=== PATIENT | male | born 1935 | race Caucasian/White ===

== ENCOUNTER 2016-11-11 08:52 | Day surgery (SDC) | payer MEDICARE, OTHER ==
[~2016-11-11 08:52] MED LIST: DIPHENHYDRAMINE HCL 50 MG/ML VIAL ONE; EPINEPHRINE INJ 1 MG/10 ML DISP.SYRIN ONE; FENTANYL CITRATE INJ/PF 100 MCG/2 ML AMPUL ONE; FLUMAZENIL INJ 0.5 MG/5 ML VIAL IV ONE; GLUCAGON,HUMAN RECOMB 1 MG INJ ONE; NALOXONE HCL INJ/PF 0.4 MG/1 ML SDV ONE; ONDANSETRON HCL INJ/PF 4 MG/2 ML SDV ONE
[2016-11-11] MEDS: MIDAZOLAM 2 MG/2 ML INJ ONE ×2 (10:41→10:57)
--- NOTE | 2016-11-11 10:53 | Operative Report ---
Operative Report DATE OF SURGERY: 11/11/16 Operative Report: The risks benefits and alternatives of the procedure explained to the patient in detail and informed consent is obtained.A GIF Olympus video scope was inserted into the patient's mouth and hypopharynx, the esophagus is identified intubated and insufflated, the scope was then advanced through the esophagus stomach and duodenum, retroflexion maneuver is done, the esophagus stomach and first and second portions of the duodenum examined PREOPERATIVE DIAGNOSIS: Dysphasia. History of previous Soumya-en-Y surgery for possible peptic ulcer disease POSTOPERATIVE DIAGNOSIS: Esophageal stricture status post bougie dilation. Hiatal hernia. Gastric outlet stricture status post dilatation with balloon 10 mm device. Gastric mass adjacent to gastric outlet, status post biopsy OPERATION: EGD with dilation. EGD with biopsy SURGEON: LORRAINE RICHARDS ANESTHESIA: Moderate Sedation - 3 mg of Versed, 25 mcg of fentanyl. Conscious sedation monitoring time 30 minutes. TISSUE REMOVED OR ALTERED: As described above. COMPLICATIONS: None. ESTIMATED BLOOD LOSS: None. INTRAOPERATIVE FINDINGS: As described above. PROCEDURE: Patient tolerated procedure well. No immediate postprocedure complications are noted. Patient discharged in good condition. Discharge date 11/11/2016. Discharge diet as tolerated. Discharge activity regular. We will need barium swallow with upper GI series. 2-3 week follow-up to discuss findings. We will wait on pathology. Patient is instructed to call the office or proceed to the emergency room should there be any further problems or questions.
[2016-11-11 11:59] VITALS: BP 148/62
== END 2016-11-11 12:00 | disposition home or self-care (01) ==
LOC: END 08:52
PROVIDERS: ATTEND Internal Medicine Gastroenterology
PROC: 0DB68ZX Excision of Stomach, Via Natural or Artificial Opening Endoscopic, Diagnostic (ICD-10-PCS; principal; 2016-11-11 10:00)
PROC: 0D558ZZ Destruction of Esophagus, Via Natural or Artificial Opening Endoscopic (ICD-10-PCS; 2016-11-11 10:00)
DX: K29.50 Unspecified chronic gastritis without bleeding (principal); K22.2 Esophageal obstruction; K44.9 Diaphragmatic hernia without obstruction or gangrene; Z79.82 Long term (current) use of aspirin
CPT/HCPCS: 43239; 43249; 88342 ×2; 88305 ×2; J2250; J3010; J0171; J1200; J1610; J2310; J2405; J3490

== ENCOUNTER 2016-12-21 07:15 | Day surgery (SDC) | payer MEDICARE, OTHER ==
[2016-12-21] MEDS ORDERED: ONDANSETRON HCL INJ/PF 4 MG/2 ML SDV ONE (07:38)
[2016-12-21] MEDS ORDERED: NALOXONE HCL INJ/PF 0.4 MG/1 ML SDV ONE (07:38)
[2016-12-21] MEDS ORDERED: DIPHENHYDRAMINE HCL 50 MG/ML VIAL ONE (07:38)
[2016-12-21] MEDS ORDERED: FENTANYL CITRATE INJ/PF 100 MCG/2 ML AMPUL ONE (07:39)
[2016-12-21] MEDS ORDERED: MIDAZOLAM 2 MG/2 ML INJ ONE (07:39)
[2016-12-21] MEDS ORDERED: GLUCAGON,HUMAN RECOMB 1 MG INJ ONE (07:40)
[2016-12-21] MEDS ORDERED: FLUMAZENIL INJ 0.5 MG/5 ML VIAL ONE (07:40)
[2016-12-21] MEDS ORDERED: EPINEPHRINE INJ 1 MG/10 ML DISP.SYRIN ONE (07:40)
[2016-12-21] MEDS: MIDAZOLAM 2 MG/2 ML INJ ONE ×2 (08:12→08:15)
--- NOTE | 2016-12-21 08:35 | Operative Report ---
Operative Report DATE OF SURGERY: 12/21/16 Operative Report: The risks benefits and alternatives of the procedure explained to the patient in detail and informed consent is obtained.A GIF Olympus video scope was inserted into the patient's mouth and hypopharynx the esophagus is identified intubated and insufflated, the scope was then advanced through the esophagus, stomach remnant and duodenum, retroflexion maneuver is done the esophagus stomach and and the anastamosis examined PREOPERATIVE DIAGNOSIS: Esophageal stricture, dysphagia. Pyloric stenosis POSTOPERATIVE DIAGNOSIS: Esophageal stricture that was dilated with a 10 mm device. Gastritis. Pyloric stenosis status post balloon dilatation, 12, 13.5, 15 mm balloon for 1 minute each. Biopsies obtained in the antrum to rule out H pylori. Biopsies obtained at the anastomosis to rule out recurrent malignancy OPERATION: EGD with dilation, bougie. EGD with balloon dilation. EGD with biopsy SURGEON: LORRAINE RICHARDS ANESTHESIA: Moderate Sedation - 4 mg of Versed, 25 mcg of fentanyl. Conscious sedation monitoring time 30 minutes. TISSUE REMOVED OR ALTERED: As noted above. COMPLICATIONS: None. ESTIMATED BLOOD LOSS: None. INTRAOPERATIVE FINDINGS: As described above. PROCEDURE: Patient tolerated the procedure well. No immediate postprocedure complications are noted. Patient discharged in good condition. Discharge date 12/21/2016. Discharge diet: Regular. Discharge activity: Regular. We will wait on biopsies Repeat dilatation needed in 4-6 weeks Patient is instructed to go to the emergency room I will call the office should there be any further problems or questions.
[2016-12-21 09:29] VITALS: BP 146/63
== END 2016-12-21 09:30 | disposition home or self-care (01) ==
LOC: END 07:15
PROVIDERS: ATTEND Internal Medicine Gastroenterology
PROC: 0DB68ZX Excision of Stomach, Via Natural or Artificial Opening Endoscopic, Diagnostic (ICD-10-PCS; principal; 2016-12-21 08:00)
PROC: 0DH63UZ Insertion of Feeding Device into Stomach, Percutaneous Approach (ICD-10-PCS; 2016-12-21 08:00)
DX: D13.1 Benign neoplasm of stomach (principal); K29.50 Unspecified chronic gastritis without bleeding; K31.1 Adult hypertrophic pyloric stenosis; Z87.891 Personal history of nicotine dependence; Z79.82 Long term (current) use of aspirin
CPT/HCPCS: 43239; 43249; 88342 ×2; 88305 ×2; C1726; J2250; J3010; J1610; J0171; J1200; J2310; J2405; J3490

== ENCOUNTER → 2017-04-07 | Outpatient (CLI) | payer MEDICARE, OTHER ==
--- NOTE | 2017-04-07 15:45 | RADIOLOGY REPORT (SQ) ---
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 TECHNIQUE: CT scan of the abdomen and pelvis performed using helical scanning technique with dynamic intravenous contrast injection. Patient drank oral contrast. Images reviewed with lung, soft tissue , and bone windows. Reconstructed coronal and sagittal MPR images reviewed. Delayed images for evalua tion of the urinary system also acquired. All images stored on PACS. All CT scanners at this facility use dose modulation, iterative reconstruction, and/or weight based d osing when appropriate to reduce radiation dose to as low as reasonably achievable (ALARA). [facility]: Dose Right [facility]: CareDose [facility]: Dose Right [facility]: Teradose 4D [facility]: Linear Dynamics Energy CONTRAST TYPE AND DOSE: contrast/concentration: Isovue 370.00 mg/ml; Total Contrast Delivered: 62.0 ml; Total Saline Delivered: 58.0 ml RENAL FUNCTION: Creatinine 1.4 RADIATION DOSE: CT Rad equipment meets quality standard of care and radiation dose reduction techniq ues were employed. CTDIvol: 2.7 - 3.2 mGy. DLP: 277 mGy-cm.. LIMITATIONS: None. FINDINGS: Patient recently had surgery for malignant neoplasm of stomach, with a subtotal gastrectom y and lysis of adhesions, lymphadenectomy and omentectomy. On today's study, there is a small amount of right lateral chest wall and abdominal wall air superfic ial to the ribs and abdominal wall musculature, postoperative in nature. There is a moderate amount of right subphrenic free fluid, right pericolic gutter free fluid, and pel jamie cul-de-sac fluid. There is questionable peripheral rim enhancement along the pelvic cul-de-sac f luid. No free intraperitoneal air or air bubbles within these subphrenic or pericolic or pelvic fluid colle ctions. Patent drank oral contrast. Oral contrast passes from the stomach into nondistended small bowel loop s. There is oral contrast throughout the small bowel, ascending colon and proximal transverse colon. Findings were called to Dr. Bennie Mckeon from [place], 1515 hours 04/07/2017. LOWER CHEST: No significant findings. No nodules or infiltrates. LIVER: Normal size. No masses. No dilated ducts. SPLEEN: Normal size. No focal lesions. PANCREAS: No masses. No significant calcifications. No adjacent inflammation or peripancreatic fluid collections. Pancreatic duct not dilated. GALLBLADDER: No identified stones by CT criteria. No inflammatory changes to suggest cholecystitis. ADRENAL GLANDS: No significant masses or asymmetry. RIGHT KIDNEY AND URETER: No solid masses. 1 cm cyst right mid-pole kidney. No significant calcifica tions. No hydronephrosis or hydroureter. LEFT KIDNEY AND URETER: No solid masses. 1 cm cyst left mid pole kidney. No significant calcificati ons. No hydronephrosis or hydroureter. AORTA AND VESSELS: No aneurysm. No dissection. Renal arteries, SMA, celiac without stenosis. RETROPERITONEUM: No retroperitoneal adenopathy, hemorrhage or masses. BOWEL AND PERITONEAL CAVITY: As above APPENDIX: Not identified PELVIS: Free pelvic cul-de-sac fluid as above. No adenopathy. Few sigmoid colon diverticuli. Bladd er, prostate unremarkable ABDOMINAL WALL: Small amount of probable postoperative air in the right lateral abdominal wall and lo wer chest subcutaneous fat BONES: No significant or acute findings. OTHER: No other significant finding. IMPRESSION: Free fluid in the abdomen along the right subphrenic region, pericolic gutter and pelvis . Oral contrast throughout the stomach and small bowel, ascending colon and proximal transverse colon w ithout evidence of bowel obstruction or extravasation/ leakage of oral contrast into the peritoneum. TECHNICAL DOCUMENTATION: JOB ID: [id number] Quality ID # [id number]: Final reports with documentation of one or more dose reduction techniques (e.g., Au tomated exposure control, adjustment of the mA and/or kV according to patient size, use of iterative reconstruction technique) 2010 [employer]- All Rights Reserved
== END ==
LOC: RAD 13:16
PROVIDERS: ATTEND Surgery
DX: R10.9 Unspecified abdominal pain (principal); C16.9 Malignant neoplasm of stomach, unspecified; K31.1 Adult hypertrophic pyloric stenosis
CPT/HCPCS: 74177; 82565

== ENCOUNTER 2018-02-27 11:06 | Day surgery (SDC) | payer MEDICARE, OTHER ==
[2018-02-27] MEDS ORDERED: ONDANSETRON HCL INJ/PF 4 MG/2 ML SDV ONE (11:23)
[2018-02-27] MEDS ORDERED: FENTANYL CITRATE INJ/PF 100 MCG/2 ML AMPUL ONE (11:23)
[2018-02-27] MEDS ORDERED: MIDAZOLAM 2 MG/2 ML INJ ONE (11:23)
[2018-02-27] MEDS ORDERED: GLUCAGON,HUMAN RECOMB 1 MG INJ ONE (11:24)
[2018-02-27] MEDS ORDERED: EPINEPHRINE INJ 1 MG/10 ML DISP.SYRIN ONE (11:24)
[2018-02-27] MEDS ORDERED: NALOXONE HCL INJ/PF 0.4 MG/1 ML SDV ONE (11:24)
[2018-02-27] MEDS ORDERED: FLUMAZENIL INJ 0.5 MG/5 ML VIAL ONE (11:24)
--- NOTE | 2018-02-27 12:32 | Operative Report ---
Operative Report DATE OF SURGERY: 02/27/18 Operative Report: The risks benefits and alternatives of the procedure explained to the patient in detail and informed consent is obtained.A GIF Olympus video scope was inserted into the patient's mouth and hypopharynx, the esophagus is identified intubated and insufflated, the scope was then advanced through the esophagus stomach and duodenum, retroflexion maneuver is done, the esophagus stomach and first and second portions of the duodenum examined PREOPERATIVE DIAGNOSIS: Follow-up dysphagia POSTOPERATIVE DIAGNOSIS: Mid esophageal lesion, fleshy in nature status post biopsy. Schatzki's ring status post biopsy to break. Hiatal hernia. Previous surgical noted OPERATION: EGD with biopsy SURGEON: LORRAINE RICHARDS ANESTHESIA: Moderate Sedation - 2 mg of Versed, 12.5 mcg of fentanyl .conscious sedation monitoring time 30 minutes. TISSUE REMOVED OR ALTERED: As noted above. COMPLICATIONS: None. ESTIMATED BLOOD LOSS: None. INTRAOPERATIVE FINDINGS: As noted above. PROCEDURE: Patient tolerated the procedure well. No immediate postprocedure complications are noted. Patient discharged in good condition. Discharge date 02/27/2018. Discharge diet: Regular. Discharge activity: Regular. 2-3-week follow-up to discuss findings. Patient is instructed to call the office or proceed to the emergency room should there be any further proximal questions. Wait on the pathology.
[2018-02-27 13:36] VITALS: BP 163/70
== END 2018-02-27 13:35 | disposition home or self-care (01) ==
LOC: END 11:06
PROVIDERS: ATTEND Internal Medicine Gastroenterology
DX: K22.2 Esophageal obstruction (principal); K44.9 Diaphragmatic hernia without obstruction or gangrene; K20.9 Esophagitis, unspecified; Z87.891 Personal history of nicotine dependence; Z79.82 Long term (current) use of aspirin
CPT/HCPCS: 43239; 88305 ×2; 88312 ×2; J2250; J3010; J0171; J1610; J2310; J2405; J3490

== ENCOUNTER 2019-04-09 11:18 | Day surgery (SDC) | payer MEDICARE, OTHER ==
[~2019-04-09 11:18] MED LIST changes: -FLUMAZENIL INJ 0.5 MG/5 ML VIAL IV ONE; +FLUMAZENIL INJ 0.5 MG/5 ML VIAL ONE; +MIDAZOLAM 2 MG/2 ML INJ ONE
--- NOTE | 2019-04-09 12:12 | Operative Report ---
Operative Report DATE OF SURGERY: 04/09/19 Operative Report: The risks benefits and alternatives of the procedure explained to the patient in detail and informed consent is obtained.A GIF Olympus video scope was inserted into the patient's mouth and hypopharynx, the esophagus is identified intubated and insufflated ,the scope was then advanced through the esophagus stomach and duodenum ,retroflexion maneuver is done, the esophagus stomach and first and second portions of the duodenum examined PREOPERATIVE DIAGNOSIS: Follow-up esophageal lesion. Follow-up lesion noted at anastomotic site POSTOPERATIVE DIAGNOSIS: Mild anastomotic stricture that was dilated with passage of the scope. Biopsies to rule out recurrence. More prominent Schatzki's ring. Biopsies taken at the distal esophagus. Hiatal hernia OPERATION: EGD with biopsy SURGEON: LORRAINE RICHARDS ANESTHESIA: Moderate Sedation - 2 mg of Versed. Conscious sedation monitoring time 30 minutes. TISSUE REMOVED OR ALTERED: As noted above. COMPLICATIONS: None. ESTIMATED BLOOD LOSS: None. INTRAOPERATIVE FINDINGS: As noted above. PROCEDURE: Patient tolerated the procedure well. No immediate postprocedure complications are noted. Patient is discharged in good condition. Discharge date 04/09/2019. Discharge diet: Regular. Discharge activity: Regular. 2 to 3-week follow-up to discuss findings. Patient is instructed to call the office or proceed to the emergency room should there be any further problems or questions. Wait on the pathology.
[2019-04-09 13:13] VITALS: BP 160/66
== END 2019-04-09 13:20 | disposition home or self-care (01) ==
LOC: END 11:18
PROVIDERS: ATTEND Internal Medicine Gastroenterology
DX: K22.9 Disease of esophagus, unspecified (principal); K44.9 Diaphragmatic hernia without obstruction or gangrene; K29.50 Unspecified chronic gastritis without bleeding; K20.9 Esophagitis, unspecified; K22.2 Esophageal obstruction; Z87.891 Personal history of nicotine dependence; K91.89 Other postprocedural complications and disorders of digestive system
CPT/HCPCS: 43239; 88305 ×2; J2250; J3010; J0171; J1200; J1610; J2310; J2405; J3490

== ENCOUNTER 2019-12-18 07:31 | Inpatient (IN) | payer MEDICARE, OTHER ==
[2019-12-18] MEDS ORDERED: PROPOFOL INJ 200 MG/20 ML VIAL IV ONE (07:36)
--- NOTE | 2019-12-18 10:01 | Operative Report ---
Operative Report DATE OF SURGERY: 12/18/19 Operative Report: The risks benefits and alternatives of the procedure explained to the patient in detail and informed consent is obtained.A GIF Olympus video scope was inserted into the patient's mouth and hypopharynx, the esophagus is identified intubated and insufflated, the scope was then advanced through the esophagus stomach and duodenum, retroflexion maneuver is done the esophagus stomach and first and second portions of the duodenum examined PREOPERATIVE DIAGNOSIS: Dyspepsia, gastroesophageal reflux disease personal history of malignancy rule out recurrence. Dysphagia POSTOPERATIVE DIAGNOSIS: Possible mild stricturing at the distal esophageal junction status post biopsy for breakage, as well as the rule out for recurrent malignancy. Inflammation noted in the gastric pouch status post biopsy. Small intestinal loop is normal OPERATION: EGD with biopsy SURGEON: LORRAINE RICHARDS ANESTHESIA: LMAC TISSUE REMOVED OR ALTERED: As noted above. COMPLICATIONS: None. ESTIMATED BLOOD LOSS: None. INTRAOPERATIVE FINDINGS: As noted above. PROCEDURE: Patient tolerated the procedure well. No immediate postprocedure complications are noted. Patient is discharged in good condition. Discharge date 12/18/2019. Discharge diet: Regular. Discharge activity: Regular. 2 to 3-week follow-up to discuss findings. Patient is instructed to call the office or proceed to the emergency room should there be any further problems or questions. Wait on the pathology.
[2019-12-18] MEDS ORDERED: ONDANSETRON HCL INJ/PF 4 MG/2 ML SDV ONE (11:17)
[2019-12-18] MEDS ORDERED: FAMOTIDINE 20 MG TABLET ONE (11:19)
[2019-12-18] MEDS ORDERED: FAMOTIDINE INJ/PF 20 MG/2 ML SDV IV ONE ×2 (11:49→12:30)
--- NOTE | 2019-12-18 12:53 | RADIOLOGY REPORT (SQ) ---
EXAM DESCRIPTION: CHEST SINGLE VIEW IMAGES COMPLETED DATE/TIME: 12/18/2019 12:44 pm REASON FOR STUDY: POSSIBLE ASPIRATION COMPARISON: None. EXAM PARAMETERS: NUMBER OF VIEWS: One view. TECHNIQUE: Single frontal radiographic view of the chest acquired. RADIATION DOSE: NA LIMITATIONS: None. FINDINGS: LUNGS AND PLEURA: Bibasilar infiltrates left greater than right. Findings are consistent with pneumonia. No pneumothorax. No effusion. MEDIASTINUM AND HILAR STRUCTURES: No masses. Contour normal. HEART AND VASCULAR STRUCTURES: Heart normal in size. Normal vasculature. BONES: No acute findings. HARDWARE: None in the chest. OTHER: No other significant finding. IMPRESSION: Bibasilar infiltrates left greater than right. TECHNICAL DOCUMENTATION: JOB ID: [id number] 2010 [employer]- All Rights Reserved Reading location - IP/workstation name: [email or web address]
[2019-12-18] MEDS ORDERED: IPRATROPIUM BROMIDE 0.02% NEB 0.5 MG/2.5 ML AMPUL NEB PRN (13:27)
[2019-12-18] MEDS ORDERED: ACETAMINOPHEN 325 MG TABLET PO PRN (13:27)
[2019-12-18] MEDS ORDERED: ACETAMINOPHEN 650 MG SUPP.RECT PR PRN (13:27)
[2019-12-18] MEDS ORDERED: GLUCAGON,HUMAN RECOMB 1 MG INJ SUBCUT PRN (13:27)
[2019-12-18] MEDS ORDERED: DEXTROSE 50%-WATER 25 GM/50 ML DISP.SYRIN IV PRN ×2 (13:27)
[2019-12-18] MEDS ORDERED: LEVALBUTEROL HCL NEB 1.25 MG/3 ML AMPUL NEB PRN (13:27)
[2019-12-18] MEDS ORDERED: DEXTROSE 40% GEL 15 GM TUBE PO PRN ×2 (13:27)
[2019-12-18 13:29] LABS: HEMATOCRIT 46.2 % (37.9-51.0); HEMOGLOBIN 15.7 g/dL (13.5-17.0); MEAN CORPUSCULAR HGB CONC 33.9 g/dL (32.0-36.0); MEAN CORPUSCULAR VOLUME 103 fl (80-97); PLATELET COUNT 288 10^3/uL (150-450); RED BLOOD COUNT 4.48 10^6/uL (4.35-5.55); RED CELL DISTRIBUTION WIDTH 13.4 % (11.5-14.0); WHITE BLOOD COUNT 1.7 10^3/uL (4.0-10.5)
[2019-12-18 13:32] LABS: ARTERIAL BLOOD BASE EXCESS -7.3 mmol/L; ARTERIAL BLOOD FIO2 100%; ARTERIAL BLOOD H2CO3 1.19 mmol/L (1.05-1.35); ARTERIAL BLOOD HCO3 18.7 mmol/L (20-24); ARTERIAL BLOOD O2 SATURATION 83.4 % (94-98); ARTERIAL BLOOD PCO2 39.5 mmHg (35-45); ARTERIAL BLOOD PH 7.29 (7.35-7.45); ARTERIAL BLOOD PO2 52.3 mmHg (80-100); ARTERIAL BLOOD TOTAL CO2 19.9 mmol/L (23-27)
[2019-12-18 13:37] LABS: INTERNATIONAL RATION (INR) 0.89; PARTIAL THROMBOPLASTIN TIME 24.9 SEC (23.5-35.8); PROTHROMBIN TIME 12.3 SEC (11.4-15.4)
[2019-12-18] MEDS ORDERED: METOPROLOL TARTRATE PF/INJ 5 MG/5 ML SDV IV PRN (13:45)
[2019-12-18] MEDS ORDERED: ENALAPRILAT DIHYDRATE INJ/PF 1.25 MG/1 ML SDV IV PRN (13:45)
[2019-12-18 13:49] LABS: ALBUMIN 4.3 g/dL (3.5-5.0); ALKALINE PHOSPHATASE 126 U/L (38-126); ANION GAP 11 (5-19); ASPARTATE AMINO TRANSFERASE 40 U/L (17-59); BILIRUBIN,DIRECT 0.2 mg/dL (0.0-0.4); BILIRUBIN,TOTAL 0.8 mg/dL (0.2-1.3); BLOOD UREA NITROGEN 18 mg/dL (7-20); CALCIUM 9.5 mg/dL (8.4-10.2); CARBON DIOXIDE 23 mmol/L (22-30); CHLORIDE 104 mmol/L (98-107); GLUCOSE 125 mg/dL (75-110); POTASSIUM 4.5 mmol/L (3.6-5.0); TOTAL PROTEIN 7.7 g/dL (6.3-8.2)
[2019-12-18 14:07] LABS: ABSOLUTE LYMPHOCYTES# (MANUAL) 0.2 10^3/uL (0.5-4.7); ABSOLUTE MONOCYTES # (MANUAL) 0.2 10^3/uL (0.1-1.4); BAND NEUTROPHILS % (MANUAL) 2 % (3-5); BASOPHILS % (MANUAL) 0 % (0-2); EOSINOPHILS % (MANUAL) 4 % (0-6); LYMPHOCYTES % (MANUAL) 12 % (13-45); MONOCYTES % (MANUAL) 12 % (3-13); SEGMENTED NEUTROPHILS % (MAN) 70 % (42-78); TOTAL CELLS COUNTED 50
[2019-12-18 14:13] LABS: PLATELET COMMENT ADEQUATE
[2019-12-18] MEDS: HEPARIN SOD (PORCINE) 5,000 UNIT/ML 1 ML VIAL SUBCUT SCH ×2 (14:14→21:26)
--- NOTE | 2019-12-18 14:19 | PDOC H&P ---
History of Present Illness Admission Date/PCP: 12/18/19 13:17 Patient complains of: Respiratory failure History of Present Illness: JANEY NEFF is a 84 year old male with a history of gastric carcinoma. He also has a history of hypertension, peripheral arterial disease and gastroesophageal reflux disease. He was undergoing EGD endoscopy. He was in the recovery room and became acutely short of breath. Medical emergency was called. Upon arrival the patient was struggling to breathe. Oxygen saturations were in the 80s. He had rhonchi bilaterally. He was immediately placed on BiPAP. A stat chest x-ray, blood work and EKG were obtained. He will be admitted to the hospitalist service. We will draw blood cultures and check a urinalysis with reflex to culture and then institute IV antibiotics. Unasyn will cover a broad range of microbes including anaerobes for an aspiration pneumonia. He was responding to BiPAP with FiO2 75%. Pressures were 14/6 I believe. Respiratory rate was set at 8. After a short while his oxygen saturations were between 89 and 95% for the most part. He was still tachycardic. He is going to be transferred down to [facility]. Past Medical History Past Medical History: Per hospital records. The patient's daughter was in the endoscopy waiting room. Unfortunately she was overwhelmed with the current situation and therefore I did not press her for medical history at this time. Cardiac Medical History: Reports: Hypertension, Peripheral Vascular Disease Denies: Coronary Artery Disease, Myocardial Infarction - cath showed slight blockage in one leg (right) Pulmonary Medical History: Denies: Asthma, Bronchitis, Chronic Obstructive Pulmonary Disease (COPD), Pneumonia EENT Medical History: Reports: None Neurological Medical History: Denies: Seizures Endocrine Medical History: Denies: Diabetes Mellitus Type 2, Hypothyroidism Malignancy Medical History: Reports: Other - Stomach GI Medical History: Denies: Hepatitis, Hiatal Hernia Musculoskeltal Medical History: Denies: Arthritis - occasional cramping in hands, wrists, legs Skin Medical History: Denies: Eczema, Psoriasis Psychiatric Medical History: Reports: Other - Unknown. Will reinvestigate when patient is able to verbally interact. Hematology: Denies: Anemia, Sickle Cell Disease Infectious Medical History: Reports: None Past Surgical History Past Surgical History: Reports: Appendectomy, Tonsillectomy, Other - Modified Billroth for gastric cancer Denies: Pacemaker Social History Information Source: [facility] Records - Unable to determine at this time. Lives with: Other - Unable to determine at this time. Smoking Status: Unknown if Ever Smoked Electronic Cigarette use?: No Frequency of Alcohol Use: None - Per endoscopy history and physical Hx Recreational Drug Use: No - Per endoscopy history and physical Hx Prescription Drug Abuse: No - Per endoscopy history and physical - Advance Directive Resuscitation Status: Do Not Resuscitate Surrogate healthcare decision maker:: His daughter was in the waiting room. I did briefly discuss CODE STATUS with her and she acknowledged that he was DO NOT RESUSCITATE. I believe she is the decision maker if needed. Family History Family History: Other - Unable to assess at this time due to the patient's medical status Parental Family History Reviewed: No Children Family History Reviewed: No Sibling(s) Family History Reviewed.: No Medication/Allergy Home Medications: Cholestyramine [Questran 4 gm Packet] 4 gm PO DAILY 04/09/19 Latanoprost/Pf [Latanoprost 0.005% Eye Drop] 7.5 ml .ROUTE DAILY 04/09/19 Losartan Potassium [Cozaar] 1 tab PO DAILY 04/09/19 Cilostazol [Pletal 100 mg Tablet] 100 mg PO BID 12/18/19 Emollient Base [Vanicream] 453 12/18/19 Lisinopril [Prinivil 10 mg Tablet] 10 mg PO DAILY 12/18/19 Allergies/Adverse Reactions: propofol Adverse Reaction (Severe, Verified 02/27/18 11:17) SEVERE CRAMPING ALL OVER BODY FOR DAYS Review of Systems ROS unobtainable: Other - Patient BiPAP dependent and very tachypneic. Unable to fully assess at this time. Limited review as below. Cardiovascular: ABSENT: edema Respiratory: PRESENT: cough, other - Coarse rhonchi with tachypnea Gastrointestinal: PRESENT: heartburn Genitourinary: ABSENT: dysuria, hematuria Neurological: PRESENT: other - Unable to fully assess at this moment Physical Exam Vital Signs: Temp Pulse Resp BP Pulse Ox 97.3 F 60 17 132/68 H 94 12/18/19 13:05 12/18/19 13:05 12/18/19 13:05 12/18/19 13:05 12/18/19 13:05 Intake & Output 12/17/19 12/18/19 12/19/19 06:59 06:59 06:59 Intake Total 550 Balance 550 Weight 54.43 kg General appearance: PRESENT: severe distress, thin - Frail thin 84-year-old patient resting in the gurney., other - BiPAP mask in place Head exam: PRESENT: atraumatic, other - Temporal wasting Eye exam: PRESENT: other - Unable to assess Ear exam: PRESENT: normal external ear exam. ABSENT: bleeding, drainage Mouth exam: PRESENT: other - Unable to assess. BiPAP mask in place. Teeth exam: PRESENT: other - Unable to assess. Throat exam: PRESENT: other - BiPAP mask in place. Unable to assess. Neck exam: ABSENT: carotid bruit, JVD, lymphadenopathy, tracheostomy Respiratory exam: PRESENT: prolonged expiratory phas, rhonchi - Bilateral bases, symmetrical, tachypnea. ABSENT: wheezes Cardiovascular exam: PRESENT: +S1, tachycardia GI/Abdominal exam: PRESENT: hypoactive bowel sounds, soft, other - Difficult to assess due to tachypnea.. ABSENT: distended, tenderness Rectal exam: PRESENT: deferred Gentrourinary exam: ABSENT: indwelling catheter Extremities exam: ABSENT: pedal edema Musculoskeletal exam: PRESENT: normal inspection. ABSENT: deformity, dislocation Neurological exam: PRESENT: alert, awake, oriented to person, oriented to situation, other - Limited exam due to current medical status Psychiatric exam: PRESENT: agitated, unusual affect - Struggling to breathe on BiPAP. Focused psych exam: PRESENT: other - Unable to assess Skin exam: PRESENT: dry, warm. ABSENT: rash Results Laboratory Results: 12/18/19 13:07 12/18/19 12/18/19 13:04 13:07 Carbonic Acid 1.19 HCO3/H2CO3 Ratio 15:1 ABG pH 7.29 L ABG pCO2 39.5 ABG pO2 52.3 L ABG HCO3 18.7 L ABG O2 Saturation 83.4 L ABG Base Excess -7.3 FiO2 100% Sodium 138.2 Potassium 4.5 Chloride 104 Carbon Dioxide 23 Anion Gap 11 BUN 18 Creatinine 1.08 Est GFR ( Amer) > 60 Glucose 125 H Calcium 9.5 Magnesium 1.9 Total Bilirubin 0.8 AST 40 Alkaline Phosphatase 126 Total Protein 7.7 Albumin 4.3 Impressions: Chest X-Ray 12/18/19 00:00 IMPRESSION: Bibasilar infiltrates left greater than right. Assessment and Plan - Diagnosis (1) Acute and chronic respiratory failure with hypoxia Is this a current diagnosis for this admission?: Yes Plan: Shortly post EGD endoscopy the patient developed acute shortness of breath. His oxygen saturation decreased. He was exhibiting increased work of breathing. Initially oxygen supplementation was not adequate to restore his pulse oximetry to 90% or better. BiPAP was then instituted. FiO2 had to be increased to 75% initially. This seems to be keeping his pulse oximetry above 90%. Currently on 05/10 with good tidal volumes. Will initiate antibiotics for aspiration pneumonia and wean respiratory/oxygen support as tolerated. According to the records the patient does not have history of COPD. His x-rays however show a markedly flattened diaphragms with bilateral lower lobe infiltrates. (2) Aspiration pneumonia of both lower lobes Qualifiers: Aspiration pneumonia type: due to gastric secretions Qualified Code(s): J69.0 - Pneumonitis due to inhalation of food and vomit Is this a current diagnosis for this admission?: Yes Plan: The patient developed his acute hypoxic respiratory failure shortly after endoscopy. Difficult to know if this was the exact etiology or if the patient had been having silent aspiration issues previously. Regardless we will check laboratory studies, initiate IV antibiotics and hydrate until the patient exhibits that he can take windows off of BiPAP and be stable as well as a safe swallow. I will likely have speech therapy see the patient tomorrow. The patient will be n.p.o. until he exhibits being able to be off of BiPAP to eat and exhibits a safe swallow. (3) Hypertension Qualifiers: Hypertension type: essential hypertension Qualified Code(s): I10 - Essential (primary) hypertension Is this a current diagnosis for this admission?: Yes Plan: Medication records reveal lisinopril and losartan. This is unlikely. Once the patient is awake and alert enough I will inquire. I will also asked the patient's daughter when I see her next. When the patient was extremis he was exhibiting high blood pressures. They seem to be settling down. (4) Sinus tachycardia Is this a current diagnosis for this admission?: Yes Plan: Post decompensation his heart rate was in the 120s consistently. We will give the patient a chance to settle down after treatment with BiPAP and reassess vital signs. No beta-mica therapy at this time. Beta-mica therapy (as well as WEN inhibitor therapy) through the intravenous will be available if needed. (5) Gastroesophageal reflux disease Qualifiers: Esophagitis presence: esophagitis presence not specified Qualified Code(s): K21.9 - Gastro-esophageal reflux disease without esophagitis Is this a current diagnosis for this admission?: Yes Plan: We will review the results of the esophagogastroduodenoscopy. The patient will be on IV famotidine for right now. He is not on any proton pump inhibitors or H2 blockers according to his medication regimen. (6) Peripheral arterial disease Is this a current diagnosis for this admission?: Yes Plan: Pre-endoscopy medical history indicates mild peripheral arterial disease. This is likely what he is on the Pletal for. Will resume of Pletal once the patient is stable. He will have subcutaneous heparin for DVT prophylaxis as well. He may benefit from statin therapy but will discuss this with the patient and his daughter. (7) History of gastric cancer Is this a current diagnosis for this admission?: Yes Plan: History of modified Billroth surgery. Once the patient is stable, I will discuss with him and his daughter regarding diet modifications relative to his previous surgery. His medication list does include cholestyramine. I will initiate this once he is stable, awake, alert and exhibits a safe swallow. - Time Time Spent with patient: 35 or more minutes Medications reviewed and adjusted accordingly: Yes Anticipated Discharge Disposition: Unknown Anticipated Discharge Timeframe: Unknown - Inpatient Certification Based on my medical assessment, after consideration of the patient's comorbidities, presenting symptoms, or acuity I expect that the services needed warrant INPATIENT care.: Yes I certify that my determination is in accordance with my understanding of Medicare's requirements for reasonable and necessary INPATIENT services [42 CFR 412.3e].: Yes Medical Necessity: Need Close Monitoring Due to Risk of Patient Decompensation, Need For IV Fluids, Need For Continuous Telemetry Monitoring, Need for Nebulizer Therapy and Monitoring of Response, Need for IV Antibiotics, Risk of Complication if Not Cared For in Hospital Post Hospital Care: D/C or Transfer Summary
[2019-12-18 14:24] LABS: APPEARANCE,URINE CLEAR; BILIRUBIN,URINE NEGATIVE (NEGATIVE); COLOR,URINE STRAW; GLUCOSE, URINE NEGATIVE (NEGATIVE); KETONES,URINE NEGATIVE (NEGATIVE); PROTEIN,URINE NEGATIVE (NEGATIVE); URINE SPECIFIC GRAVITY 1.008; UROBILINOGEN,URINE NEGATIVE mg/dL (<2.0)
[2019-12-18] MEDS: LEVALBUTEROL HCL NEB 1.25 MG/3 ML AMPUL NEB SCH ×4 (14:28→23:45)
[2019-12-18] MEDS: IPRATROPIUM BROMIDE 0.02% NEB 0.5 MG/2.5 ML AMPUL NEB SCH ×2 (14:28→20:51)
[2019-12-18] MEDS: AMPICILLIN SODIUM/SULBACTAM NA 3 GM in NORMAL SALINE 100 ML IV SCH ×2 (15:32→21:25)
[2019-12-18] MEDS: RINGERS SOLUTION,LACTATED 1,000 ML IV PRN (18:37)
[2019-12-18] MEDS: FAMOTIDINE INJ/PF 20 MG/2 ML SDV IV SCH (21:26)
[2019-12-18] MEDS: GUAIFENESIN 600 MG TABLET.SA PO SCH (21:28)
--- NOTE | 2019-12-18 21:54 | EKG REPORT ---
SEVERITY:- ABNORMAL ECG - SINUS TACHYCARDIA RIGHT AXIS DEVIATION LOW VOLTAGE IN FRONTAL LEADS NONSPECIFIC T ABNORMALITIES, INFERIOR LEADS : Confirmed by: Roula Limon MD 18-Dec-2019 21:53:18
[2019-12-18] MEDS ORDERED: GUAIFENESIN 600 MG TABLET.SA PO SCH (22:00)
[2019-12-19] MEDS: LEVALBUTEROL HCL NEB 1.25 MG/3 ML AMPUL NEB SCH ×6 (02:20→20:47)
[2019-12-19] MEDS: IPRATROPIUM BROMIDE 0.02% NEB 0.5 MG/2.5 ML AMPUL NEB SCH ×4 (02:20→20:47)
[2019-12-19] MEDS: AMPICILLIN SODIUM/SULBACTAM NA 3 GM in NORMAL SALINE 100 ML IV SCH ×4 (03:02→21:30)
[2019-12-19] MEDS: BENZOCAINE/MENTHOL SORE THROAT LOZENGE BUCCAL PRN ×4 (03:04→13:12)
[2019-12-19] MEDS: HEPARIN SOD (PORCINE) 5,000 UNIT/ML 1 ML VIAL SUBCUT SCH ×3 (05:54→21:32)
[2019-12-19 05:55] LABS: ANION GAP 11 (5-19); BLOOD UREA NITROGEN 25 mg/dL (7-20); CALCIUM 8.5 mg/dL (8.4-10.2); CARBON DIOXIDE 23 mmol/L (22-30); CHLORIDE 104 mmol/L (98-107); GLUCOSE 132 mg/dL (75-110); POTASSIUM 4.4 mmol/L (3.6-5.0)
[2019-12-19 06:05] LABS: HEMATOCRIT 37.3 % (37.9-51.0); MEAN CORPUSCULAR HEMOGLOBIN 34.6 pg (27.0-33.4); MEAN CORPUSCULAR VOLUME 102 fl (80-97); PLATELET COUNT 202 10^3/uL (150-450); RED BLOOD COUNT 3.66 10^6/uL (4.35-5.55); RED CELL DISTRIBUTION WIDTH 13.4 % (11.5-14.0)
[2019-12-19 06:16] LABS: HEMOGLOBIN 12.7 g/dL (13.5-17.0); WHITE BLOOD COUNT 14.7 10^3/uL (4.0-10.5)
[2019-12-19 06:19] LABS: SEGMENTED NEUTROPHILS % (MAN) 80 % (42-78); TOTAL CELLS COUNTED 100
[2019-12-19 06:20] LABS: ABSOLUTE LYMPHOCYTES# (MANUAL) 0.6 10^3/uL (0.5-4.7); ABSOLUTE MONOCYTES # (MANUAL) 0.7 10^3/uL (0.1-1.4); BAND NEUTROPHILS % (MANUAL) 10 % (3-5); BASOPHILS % (MANUAL) 0 % (0-2); EOSINOPHILS % (MANUAL) 0 % (0-6); LYMPHOCYTES % (MANUAL) 4 % (13-45); METAMYELOCYTES % (MANUAL) 1 % (0-1); MONOCYTES % (MANUAL) 5 % (3-13)
[2019-12-19 06:21] LABS: PLATELET COMMENT ADEQUATE; RBC MORPHOLOGY COMMENT NORMO-CYTIC/CHROMIC
[2019-12-19] MEDS: GUAIFENESIN 600 MG TABLET.SA PO SCH ×2 (09:07→21:33)
[2019-12-19] MEDS: RINGERS SOLUTION,LACTATED 1,000 ML IV PRN (09:07)
[2019-12-19] MEDS: FAMOTIDINE INJ/PF 20 MG/2 ML SDV IV SCH ×2 (09:07→22:26)
--- NOTE | 2019-12-19 10:13 | EKG REPORT ---
SEVERITY:- ABNORMAL ECG - SINUS RHYTHM LOW VOLTAGE IN FRONTAL LEADS ST ELEVATION, CONSIDER EARLY REPOLARISATION : Confirmed by: Roula Limon MD 19-Dec-2019 10:12:34
[2019-12-19 11:15] LABS: PATH REVIEW PATHOLOGIST REVIEWED
--- NOTE | 2019-12-19 20:20 | PDOC PROGRESS REPORT ---
Subjective Progress Note for:: 12/19/19 Subjective:: Doing much better today. He is down to nasal cannula. Reason For Visit: R13.10 DYSPHAGIA, UNSPECIFIED Physical Exam Vital Signs: Temp Pulse Resp BP Pulse Ox 98.0 F 89 18 105/57 L 97 12/19/19 12:03 12/19/19 14:44 12/19/19 14:44 12/19/19 12:03 12/19/19 14:44 Intake & Output 12/18/19 12/19/19 12/20/19 06:59 06:59 06:59 Intake Total 1850 700 Output Total 450 900 Balance 1400 -200 Weight 52.1 kg General appearance: PRESENT: no acute distress, cooperative, thin, well- developed Head exam: PRESENT: atraumatic, normocephalic Ear exam: PRESENT: normal external ear exam. ABSENT: bleeding, drainage Mouth exam: PRESENT: moist, tongue midline Neck exam: ABSENT: carotid bruit, JVD, lymphadenopathy Respiratory exam: PRESENT: clear to auscultation jayshree, symmetrical, unlabored. ABSENT: prolonged expiratory phas, rales, rhonchi, tachypnea, wheezes Cardiovascular exam: PRESENT: RRR, +S1, +S2. ABSENT: bradycardia, diastolic murmur, irregular rhythm, systolic murmur, tachycardia GI/Abdominal exam: PRESENT: normal bowel sounds, soft. ABSENT: tenderness Rectal exam: PRESENT: deferred Gentrourinary exam: ABSENT: indwelling catheter Extremities exam: PRESENT: pedal edema Musculoskeletal exam: PRESENT: ambulatory Neurological exam: PRESENT: alert, awake, oriented to person, oriented to place, oriented to time, oriented to situation, CN II-XII grossly intact. ABSENT: altered Psychiatric exam: PRESENT: appropriate affect. ABSENT: agitated, anxious Focused psych exam: ABSENT: delusional, paranoid, restlessness Results Laboratory Results: 12/19/19 05:00 12/19/19 05:00 12/19/19 12/19/19 05:00 05:00 WBC 14.7 H D RBC 3.66 L Hgb 12.7 L D Hct 37.3 L MCV 102 H MCH 34.6 H MCHC 34.0 RDW 13.4 Plt Count 202 Seg Neutrophils % Not Reportable Sodium 137.6 Potassium 4.4 Chloride 104 Carbon Dioxide 23 Anion Gap 11 BUN 25 H Creatinine 1.22 Est GFR ( Amer) > 60 Glucose 132 H Calcium 8.5 Magnesium 1.9 Impressions: Chest X-Ray 12/18/19 00:00 IMPRESSION: Bibasilar infiltrates left greater than right. Assessment and Plan - Diagnosis (1) Acute and chronic respiratory failure with hypoxia Is this a current diagnosis for this admission?: Yes Plan: Greatly improved. Oxygenating on 2 L nasal cannula. We will continue to taper to room air. (2) Aspiration pneumonia of both lower lobes Qualifiers: Aspiration pneumonia type: due to gastric secretions Qualified Code(s): J69.0 - Pneumonitis due to inhalation of food and vomit Is this a current diagnosis for this admission?: Yes Plan: Responding very well to antibiotic therapy. Continue current treatment plan. (3) Hypertension Qualifiers: Hypertension type: essential hypertension Qualified Code(s): I10 - Essential (primary) hypertension Is this a current diagnosis for this admission?: Yes Plan: Blood pressures much improved. Continue current regimen. (4) Sinus tachycardia Is this a current diagnosis for this admission?: Yes Plan: Resolved. Pulse is been in the normal range. (5) Gastroesophageal reflux disease Qualifiers: Esophagitis presence: esophagitis presence not specified Qualified Code(s): K21.9 - Gastro-esophageal reflux disease without esophagitis Is this a current diagnosis for this admission?: Yes Plan: Currently well controlled. Continue current regimen. (6) Peripheral arterial disease Is this a current diagnosis for this admission?: Yes Plan: Resume Pletal (7) History of gastric cancer Is this a current diagnosis for this admission?: Yes - Time Time Spent with patient: 15-24 minutes Medications reviewed and adjusted accordingly: Yes Anticipated Discharge Disposition: Home, Self Care Anticipated Discharge Timeframe: within 24 hours
[2019-12-20] MEDS: RINGERS SOLUTION,LACTATED 1,000 ML IV PRN (00:42)
[2019-12-20] MEDS: IPRATROPIUM BROMIDE 0.02% NEB 0.5 MG/2.5 ML AMPUL NEB SCH ×3 (02:19→14:14)
[2019-12-20] MEDS: LEVALBUTEROL HCL NEB 1.25 MG/3 ML AMPUL NEB SCH ×3 (02:21→14:14)
[2019-12-20] MEDS: AMPICILLIN SODIUM/SULBACTAM NA 3 GM in NORMAL SALINE 100 ML IV SCH ×2 (04:14→10:14)
[2019-12-20] MEDS: HEPARIN SOD (PORCINE) 5,000 UNIT/ML 1 ML VIAL SUBCUT SCH (05:05)
[2019-12-20 06:35] LABS: HEMATOCRIT 34.2 % (37.9-51.0); HEMOGLOBIN 11.7 g/dL (13.5-17.0); MEAN CORPUSCULAR HEMOGLOBIN 34.7 pg (27.0-33.4); MEAN CORPUSCULAR HGB CONC 34.3 g/dL (32.0-36.0); MEAN CORPUSCULAR VOLUME 101 fl (80-97); PLATELET COUNT 168 10^3/uL (150-450); RED BLOOD COUNT 3.37 10^6/uL (4.35-5.55); RED CELL DISTRIBUTION WIDTH 13.5 % (11.5-14.0); WHITE BLOOD COUNT 16.4 10^3/uL (4.0-10.5)
[2019-12-20 06:56] LABS: ABSOLUTE LYMPHOCYTES# (MANUAL) 0.7 10^3/uL (0.5-4.7); ABSOLUTE MONOCYTES # (MANUAL) 1.3 10^3/uL (0.1-1.4); BAND NEUTROPHILS % (MANUAL) 6 % (3-5); BASOPHILS % (MANUAL) 0 % (0-2); EOSINOPHILS % (MANUAL) 0 % (0-6); LYMPHOCYTES % (MANUAL) 4 % (13-45); MONOCYTES % (MANUAL) 8 % (3-13); SEGMENTED NEUTROPHILS % (MAN) 82 % (42-78); TOTAL CELLS COUNTED 100
[2019-12-20 06:57] LABS: PLATELET COMMENT ADEQUATE; RBC MORPHOLOGY COMMENT NORMO-CYTIC/CHROMIC
[2019-12-20] MEDS ORDERED: CILOSTAZOL 100 MG TABLET PO SCH (10:00)
[2019-12-20] MEDS: BENZOCAINE/MENTHOL SORE THROAT LOZENGE BUCCAL PRN (10:13)
--- NOTE | 2019-12-20 12:54 | PDOC PROGRESS REPORT ---
Subjective Progress Note for:: 12/20/19 Subjective:: The nurse did a bedside swallow eval that was initially okay but then there was question about if he was partially aspirating. Speech therapy did evaluate and he in fact is going down for modified barium swallow as we speak. Reason For Visit: R13.10 DYSPHAGIA, UNSPECIFIED Physical Exam Vital Signs: Temp Pulse Resp BP Pulse Ox 97.9 F 90 16 150/78 H 89 L 12/20/19 10:00 12/20/19 08:23 12/20/19 08:23 12/20/19 07:28 12/20/19 08:23 Intake & Output 12/19/19 12/20/19 12/21/19 06:59 06:59 06:59 Intake Total 1850 1657 100 Output Total 450 1700 Balance 1400 -43 100 Weight 52.1 kg 51.8 kg General appearance: PRESENT: no acute distress, cooperative, thin - Frail, well- developed Head exam: PRESENT: atraumatic, normocephalic, other - Temporal wasting Mouth exam: PRESENT: moist, tongue midline Respiratory exam: PRESENT: rhonchi - Faint rhonchi in the right, symmetrical, unlabored. ABSENT: rales, tachypnea, wheezes Cardiovascular exam: PRESENT: RRR, +S1. ABSENT: bradycardia, diastolic murmur, irregular rhythm, +S2, systolic murmur, tachycardia GI/Abdominal exam: PRESENT: normal bowel sounds, soft. ABSENT: distended, tenderness Rectal exam: PRESENT: deferred Gentrourinary exam: ABSENT: indwelling catheter Extremities exam: ABSENT: pedal edema Musculoskeletal exam: PRESENT: ambulatory, other - Decreased muscle mass. ABSENT: deformity, dislocation Neurological exam: PRESENT: alert, awake, oriented to person, oriented to place, oriented to time, oriented to situation, CN II-XII grossly intact. ABSENT: altered Psychiatric exam: PRESENT: appropriate affect. ABSENT: agitated, anxious Focused psych exam: ABSENT: delusional, paranoid, restlessness Skin exam: PRESENT: dry, normal color, warm. ABSENT: rash Results Laboratory Results: 12/20/19 05:41 12/19/19 05:00 12/20/19 05:41 WBC 16.4 H RBC 3.37 L Hgb 11.7 L Hct 34.2 L MCV 101 H MCH 34.7 H MCHC 34.3 RDW 13.5 Plt Count 168 Seg Neutrophils % Not Reportable Impressions: Chest X-Ray 12/18/19 00:00 IMPRESSION: Bibasilar infiltrates left greater than right. Assessment and Plan - Diagnosis (1) Acute and chronic respiratory failure with hypoxia Is this a current diagnosis for this admission?: Yes Plan: Doing much better. Tapering oxygen to room air. Patient does not use oxygen at home. Encouraged to ambulate. (2) Aspiration pneumonia of both lower lobes Qualifiers: Aspiration pneumonia type: due to gastric secretions Qualified Code(s): J69.0 - Pneumonitis due to inhalation of food and vomit Is this a current diagnosis for this admission?: Yes Plan: There was question of possible aspiration. Speech therapy is gracious enough to see the patient expeditiously and he in fact is on his way down for modified barium swallow. Await results to determine further risk of aspiration. With regard to his pneumonia he is doing extremely well. (3) Hypertension Qualifiers: Hypertension type: essential hypertension Qualified Code(s): I10 - Essential (primary) hypertension Is this a current diagnosis for this admission?: Yes Plan: Blood pressures are variable but overall reasonable control. (4) Sinus tachycardia Is this a current diagnosis for this admission?: Yes Plan: Sporadic heart rate 100 or greater. All other pulse readings are in the 80-95 range. (5) Gastroesophageal reflux disease Qualifiers: Esophagitis presence: esophagitis presence not specified Qualified Code(s): K21.9 - Gastro-esophageal reflux disease without esophagitis Is this a current diagnosis for this admission?: Yes Plan: Continue famotidine from home. If still symptomatic may benefit from proton pump inhibitor. (6) Peripheral arterial disease Is this a current diagnosis for this admission?: Yes Plan: Continue Pletal. Further evaluation as an outpatient. (7) History of gastric cancer Is this a current diagnosis for this admission?: Yes Plan: Post Billroth surgery. Unsure if this would increase reflux or not. We will see how the patient does with the modified barium swallow. (8) Leukocytosis Qualifiers: Leukocytosis type: unspecified Qualified Code(s): D72.829 - Elevated white blood cell count, unspecified Is this a current diagnosis for this admission?: Yes Plan: White blood cell count is slightly higher today. Significantly lower change than the white cell count jumped from admission until yesterday. This was likely reaction to the infection. I anticipate the white blood cell count to start trending down with ongoing antibiotic therapy. - Time Time Spent with patient: Less than 15 minutes Medications reviewed and adjusted accordingly: Yes Anticipated Discharge Disposition: Home, Self Care Anticipated Discharge Timeframe: within 48 hours
[2019-12-20] MEDS: FAMOTIDINE INJ/PF 20 MG/2 ML SDV IV SCH (13:20)
--- NOTE | 2019-12-20 14:43 | PDOC DISCHARGE SUMMARY ---
Impression - Admit/DC Date/PCP Admission Date/Primary Care Provider: 12/18/19 13:17 Discharge Date: 12/20/19 - Discharge Diagnosis (1) Acute and chronic respiratory failure with hypoxia Is this a current diagnosis for this admission?: Yes (2) Aspiration pneumonia of both lower lobes Is this a current diagnosis for this admission?: Yes (3) Hypertension Is this a current diagnosis for this admission?: Yes (4) Sinus tachycardia Is this a current diagnosis for this admission?: Yes (5) Gastroesophageal reflux disease Is this a current diagnosis for this admission?: Yes (6) Peripheral arterial disease Is this a current diagnosis for this admission?: Yes (7) History of gastric cancer Is this a current diagnosis for this admission?: Yes (8) Leukocytosis Is this a current diagnosis for this admission?: Yes - Additional Information Resuscitation Status: Do Not Resuscitate Discharge Diet: As Tolerated, Other (Comments) - Small sips, small bites, no straws Discharge Activity: Activity As Tolerated, No Driving Referrals: LORRAINE RICHARDS MD [ACTIVE STAFF] - 12/27/19 3:30 pm TANISHA ZELAYA DO [ASSOCIATE] - 12/27/19 9:00 am Prescriptions: Albuterol Sulfate [Albuterol Sulfate Hfa] 2 puff IH Q4H PRN #1 hfa.aer.ad PRN Reason: For Wheezing Amoxicillin/Potassium Clav [Augmentin 875-125 Tablet] 1 tab PO Q12 #16 tablet Home Medications: Cholestyramine [Questran 4 gm Packet] 4 gm PO DAILY 04/09/19 Latanoprost/Pf [Latanoprost 0.005% Eye Drop] 7.5 ml .ROUTE DAILY 04/09/19 Cilostazol [Pletal 100 mg Tablet] 100 mg PO BID 12/18/19 Emollient Base [Vanicream] 453 12/18/19 Lisinopril [Prinivil 10 mg Tablet] 10 mg PO DAILY 12/18/19 Acetaminophen [Tylenol 325 mg Tablet] 650 mg PO Q4HP PRN tablet 12/20/19 Albuterol Sulfate [Albuterol Sulfate Hfa] 2 puff IH Q4H PRN #1 hfa.aer.ad 12/20/19 Amoxicillin/Potassium Clav [Augmentin 875-125 Tablet] 1 tab PO Q12 #16 tablet 12/20/19 History of Present Illiness History of Present Illness: JANEY NEFF is a 84 year old male with a history of gastric carcinoma. He also has a history of hypertension, peripheral arterial disease and gastroesophageal reflux disease. He was undergoing EGD endoscopy. He was in the recovery room and became acutely short of breath. Medical emergency was called. Upon arrival the patient was struggling to breathe. Oxygen saturations were in the 80s. He had rhonchi bilaterally. He was immediately placed on BiPAP. A stat chest x-ray, blood work and EKG were obtained. He will be admitted to the hospitalist service. We will draw blood cultures and check a urinalysis with reflex to culture and then institute IV antibiotics. Unasyn will cover a broad range of microbes including anaerobes for an aspiration pneumonia. He was responding to BiPAP with FiO2 75%. Pressures were 14/6 I believe. Respiratory rate was set at 8. After a short while his oxygen saturations were between 89 and 95% for the most part. He was still tachycardic. He is going to be transferred down to [facility]. Hospital Course Hospital Course: Uncomplicated hospital course. The patient actually responded very well to the antibiotics and fluids. He was feeling much better by the second day. Today he was off of oxygen. He did have a modified barium swallow that did show some aspiration. We are going to have him see ENT and outpatient speech therapy. Physical Exam Vital Signs: Temp Pulse Resp BP Pulse Ox 98.1 F 86 16 149/77 H 82 L 12/20/19 12:00 12/20/19 14:14 12/20/19 14:14 12/20/19 12:00 12/20/19 12:00 Intake & Output 12/19/19 12/20/19 12/21/19 06:59 06:59 06:59 Intake Total 1850 1657 100 Output Total 450 1700 300 Balance 1400 -43 -200 Weight 52.1 kg 51.8 kg General appearance: PRESENT: no acute distress, thin, well-developed Respiratory exam: PRESENT: rhonchi - Faint rhonchi on the right, symmetrical, unlabored. ABSENT: tachypnea, wheezes Cardiovascular exam: PRESENT: RRR, +S1, +S2, systolic murmur. ABSENT: bradycardia, diastolic murmur, irregular rhythm, tachycardia GI/Abdominal exam: PRESENT: normal bowel sounds, soft. ABSENT: distended, tenderness Neurological exam: PRESENT: alert, awake, oriented to person, oriented to place, oriented to time, oriented to situation. ABSENT: altered Psychiatric exam: PRESENT: appropriate affect - Happy to be discharging. ABSENT: agitated, anxious Results Laboratory Results: WBC 16.4 10^3/uL (4.0-10.5) H 12/20/19 05:41 RBC 3.37 10^6/uL (4.35-5.55) L 12/20/19 05:41 Hgb 11.7 g/dL (13.5-17.0) L 12/20/19 05:41 Hct 34.2 % (37.9-51.0) L 12/20/19 05:41 MCV 101 fl (80-97) H 12/20/19 05:41 MCH 34.7 pg (27.0-33.4) H 12/20/19 05:41 MCHC 34.3 g/dL (32.0-36.0) 12/20/19 05:41 RDW 13.5 % (11.5-14.0) 12/20/19 05:41 Plt Count 168 10^3/uL (150-450) 12/20/19 05:41 Lymph % (Auto) Not Reportable 12/20/19 05:41 [place] % (Auto) Not Reportable 12/20/19 05:41 Eos % (Auto) Not Reportable 12/20/19 05:41 Baso % (Auto) Not Reportable 12/20/19 05:41 Absolute Neuts (auto) Not Reportable 12/20/19 05:41 Absolute Lymphs (auto) Not Reportable 12/20/19 05:41 Absolute Monos (auto) Not Reportable 12/20/19 05:41 Absolute Eos (auto) Not Reportable 12/20/19 05:41 Absolute Basos (auto) Not Reportable 12/20/19 05:41 Total Counted 100 12/20/19 05:41 Seg Neutrophils % Not Reportable 12/20/19 05:41 Seg Neuts % (Manual) 82 % (42-78) H 12/20/19 05:41 Band Neutrophils % 6 % (3-5) H 12/20/19 05:41 Lymphocytes % (Manual) 4 % (13-45) L 12/20/19 05:41 Monocytes % (Manual) 8 % (3-13) 12/20/19 05:41 Eosinophils % (Manual) 0 % (0-6) 12/20/19 05:41 Basophils % (Manual) 0 % (0-2) 12/20/19 05:41 Metamyelocytes % 1 % (0-1) 12/19/19 05:00 Abs Neuts (Manual) 14.4 10^3/uL (1.7-8.2) H 12/20/19 05:41 Abs Lymphs (Manual) 0.7 10^3/uL (0.5-4.7) 12/20/19 05:41 Abs Monocytes (Manual) 1.3 10^3/uL (0.1-1.4) 12/20/19 05:41 Absolute Eos (Manual) 0.0 10^3/uL (0.0-0.6) 12/20/19 05:41 Abs Basophils (Manual) 0.0 10^3/uL (0.0-0.2) 12/20/19 05:41 Platelet Comment ADEQUATE 12/20/19 05:41 Macrocytosis 1+ 12/18/19 13:07 RBC Morph Comment NORMO-CYTIC/CHROMIC 12/20/19 05:41 PT 12.3 SEC (11.4-15.4) 12/18/19 13:07 INR 0.89 12/18/19 13:07 APTT 24.9 SEC (23.5-35.8) 12/18/19 13:07 Carbonic Acid 1.19 mmol/L (1.05-1.35) 12/18/19 13:04 HCO3/H2CO3 Ratio 15:1 12/18/19 13:04 ABG pH 7.29 (7.35-7.45) L 12/18/19 13:04 ABG pCO2 39.5 mmHg (35-45) 12/18/19 13:04 ABG pO2 52.3 mmHg (80-100) L 12/18/19 13:04 ABG HCO3 18.7 mmol/L (20-24) L 12/18/19 13:04 ABG Total CO2 19.9 mmol/L (23-27) L 12/18/19 13:04 ABG O2 Saturation 83.4 % (94-98) L 12/18/19 13:04 ABG Base Excess -7.3 mmol/L 12/18/19 13:04 FiO2 100% 12/18/19 13:04 Sodium 137.6 mmol/L (137-145) 12/19/19 05:00 Potassium 4.4 mmol/L (3.6-5.0) 12/19/19 05:00 Chloride 104 mmol/L (98-107) 12/19/19 05:00 Carbon Dioxide 23 mmol/L (22-30) 12/19/19 05:00 Anion Gap 11 (5-19) 12/19/19 05:00 BUN 25 mg/dL (7-20) H 12/19/19 05:00 Creatinine 1.22 mg/dL (0.52-1.25) 12/19/19 05:00 Est GFR ( Amer) > 60 (>60) 12/19/19 05:00 Est GFR (MDRD) Non-Af 57 (>60) L 12/19/19 05:00 Glucose 132 mg/dL (75-110) H 12/19/19 05:00 POC Glucose 111 mg/dL (70-110) H 12/20/19 12:02 Calcium 8.5 mg/dL (8.4-10.2) 12/19/19 05:00 Magnesium 1.9 mg/dL (1.6-2.3) 12/19/19 05:00 Total Bilirubin 0.8 mg/dL (0.2-1.3) 12/18/19 13:07 Direct Bilirubin 0.2 mg/dL (0.0-0.4) 12/18/19 13:07 Neonat Total Bilirubin Not Reportable 12/18/19 13:07 Neonat Direct Bilirubin Not Reportable 12/18/19 13:07 Neonat Indirect Bili Not Reportable 12/18/19 13:07 AST 40 U/L (17-59) 12/18/19 13:07 ALT 19 U/L (<50) 12/18/19 13:07 Alkaline Phosphatase 126 U/L (38-126) 12/18/19 13:07 Total Protein 7.7 g/dL (6.3-8.2) 12/18/19 13:07 Albumin 4.3 g/dL (3.5-5.0) 12/18/19 13:07 Urine Color STRAW 12/18/19 13:55 Urine Appearance CLEAR 12/18/19 13:55 Urine pH 7.0 (5.0-9.0) 12/18/19 13:55 Ur Specific [place] 1.008 12/18/19 13:55 Urine Protein NEGATIVE mg/dL (NEGATIVE) 12/18/19 13:55 Urine Glucose (UA) NEGATIVE mg/dL (NEGATIVE) 12/18/19 13:55 Urine Ketones NEGATIVE mg/dL (NEGATIVE) 12/18/19 13:55 Urine Blood NEGATIVE (NEGATIVE) 12/18/19 13:55 Urine Nitrite (Reflex) NEGATIVE (NEGATIVE) 12/18/19 13:55 Urine Bilirubin NEGATIVE (NEGATIVE) 12/18/19 13:55 Urine Urobilinogen NEGATIVE mg/dL (<2.0) 12/18/19 13:55 Leukocyte Esterase Rfl NEGATIVE (NEGATIVE) 12/18/19 13:55 Urine RBC (Auto) 0 /HPF 12/18/19 13:55 Urine Ascorbic Acid NEGATIVE (NEGATIVE) 12/18/19 13:55 Slides for Path Review PATHOLOGIST REVIEWED 12/18/19 13:07 Impressions: Chest X-Ray 12/18/19 00:00 IMPRESSION: Bibasilar infiltrates left greater than right. Plan Health Concerns: Dysphagia with evidence of aspiration Plan of Treatment: The patient in fact did exhibit slightly abnormal swallow. Speech therapy reviewed the modified barium swallow with me. Recommendation is for outpatient speech therapy. In addition he had some asymmetric pooling and the thought was that a thorough evaluation by otolaryngology would be appropriate. He will be following up with his primary care. I did suggest to the patient's daughter, as she had discussed with me earlier, to get a copy of the complete chart including imaging on a CD that they may bring to the patient's oncologist. Goals: Complete resolution of the pneumonia with outpatient antibiotics Time Spent: Greater than 30 Minutes Stroke Is this a Stroke Patient?: No Acute Heart Failure - Is this a Heart Failure Patient?: No
[2019-12-20 14:53] VITALS: BP 150/78
--- NOTE | 2019-12-20 15:39 | ST Inp Modified Barium Swallow ---
Medical Diagnosis - Medical Diagnoses Medical Diagnosis Description & ICD-10 Code(s): acute & chronic respiratory failure with hypoxia - ICD-10 Tx Diagnosis Coding (1) Dysphagia, pharyngeal phase ICD-10 Code(s): R13.13 - DYSPHAGIA, PHARYNGEAL PHASE (2) Acute and chronic respiratory failure with hypoxia ICD-10 Code(s): J96.21 - ACUTE AND CHRONIC RESPIRATORY FAILURE WITH HYPOXIA (3) Aspiration pneumonia of both lower lobes ICD-10 Code(s): J69.0 - PNEUMONITIS DUE TO INHALATION OF FOOD AND VOMIT (4) Gastroesophageal reflux disease ICD-10 Code(s): K21.9 - GASTRO-ESOPHAGEAL REFLUX DISEASE WITHOUT ESOPHAGITIS (5) History of gastric cancer ICD-10 Code(s): Z85.028 - PERSONAL HISTORY OF OTHER MALIGNANT NEOPLASM OF STOMACH Inpatient [facility] [place] - General Date: 12/20/19 Date of Onset: 12/18/19 - History History Obtained From: Other - EMR -: Medical - ST reviewed history & physical, progress notes, and operative report. Patient admitted 12/18/2019. He was undergoing EGD endoscopy and in recovery room when he became acutely short of breath and medical emergency was called. Upon arrival, oxygen saturations in 80s with rhonchi bilaterally; patient placed on BiPAP. BiPAP discontinued later in day with transition t nasal cannula based on nursing notes. Admitting diagnoses included acute & chronic respiratory failure with hypoxia, aspiration pneumonia of both lower lobes, hypertension, sinus tachycardia, GERD, peripheral arterial disease, history of gastric cancer (with modified Billroth surgery). Postoperative findings of EGD: possible mild stricturing at the distal esophageal junction status post biopsy for breakage, as well as rule out of recurrent malignancy; inflammation noted in the gastric pouch status post biopsy. Discharge diet indicated as regular (indicating no restrictions on texture based on EGD findings). PMHx: gastric carcinoma, hypertension, peripheral artery disease, & GERD. Patient passed nursing swallow screen on 12/18/2019 per nursing note. PER PATIENT REPORT he reached out to GI due to sore throat and difficulty swallowing, has history of difficulty with esophagus and need for stretching esophagus. Patient reports "I don't eat a lot because I've got a stomach about the size of my fist". He reports air fries a lot of fish and chicken. He reports sore throat began about one month ago and he has been treating with topical spray. He reports swallow feels worse on left side. Medications: Medications Reviewed Allergies: Refer to medical record - Subjective Current Nutritional Means: PO Current Symptoms: Coughing, other - sore throat, difficulty swallowing Pain: 0/5 - Objective Assessment: Upright, Left Lateral, A-P Position - Food Trials Food Trials Used: Thin liquids, Pureed, Soft solids The Patient: Was Able to Self Feed, via cup, via straw - Assessment Labial Function: Within Functional Limits Lingual Function: Within Functional Limits Mandibular Function: Within Functional Limits Dentition: Edentulous - largely edentulous, has dentures but not wearing during study Velo-Pharyngeal Function: Unremarkable - Pharyngeal Stage Initiation of Pharyngeal Stage: Normal Decreased Laryngeal Elevation: No Reduced Velo-Pharyngeal Closure: no Reduced Pressure Generation: Yes Reduced Tongue Base Retraction: Yes Pre-Swallowing Pooling in Valleculae: None Pre-Swallowing Pooling in Pyriforms: None Reduced Thyro-Hyiod Approximation: No Reduced Epiglottic Excursion: No Reduced Pharyngeal Peristalsis: Yes Multiple Swallows With: Ineffective Clearance Post Swallow Residuals in Valleculae: Mild Post Swallow Residuals in Pyriforms: None Post Swallow Residuals: tongue-base - mild & cleared with liquid wash - Esophageal Stage Cricophageal Function: Normal - Impression/Summary Laryngeal Penetration: Yes Tracheal Aspiration: yes, deep, delayed cough - over 1 minute Productive Cough: Yes - significantly delayed Effective Clearing: partial clearing Patient Presents With: Pharyngeal stage dysph., Oral-Pharyngeal dysph., Severe Risk of Aspiration: Severe Risk of Nutritional Compromise: Severe - Recommendations NPO: no Solid Diet Recommendations: Regular - with avoidance of nuts, seeds, skins, and crumbly textures Liquid Diet Recommendations: Thin - no straws Dysphagia Therapy with MANAGER ECONOMIC: Yes - therapy recommended after discharge Recommended Techniques: Small Bites and Sips, Alternate Bites/Sips Supervision: Independent Other Recommendations: Patient presented with aspiration during swallow only with straw sips of thin. Penetration with consecutive cup sips. Study also notable for residuals in LEFT vallecula with solids that patient only partially able to clear. Skilled speech therapy recommended for dysphagia with focus on increasing pharyngeal squeeze, increasing tongue base retraction, and increasing closure of laryngeal vestibule (note, patient is able to do bolus hold and swallow on cue indicating good candidacy for treatment). Physician may also want to consider referral to ENT. Patient reports sore throat for over one month that began at same time as swallowing difficulties. Patient provided with verbal and written education on diet recommendations, strategies recommended, and aspiration pneumonia, as well as dysphagia. Patient verbalized understanding of recommendations and asked appropriate questions. - Time Total Time: 20 Total Timed Minutes: 0
--- NOTE | 2019-12-20 15:47 | RADIOLOGY REPORT (SQ) ---
EXAM DESCRIPTION: COOKIE SWALLOW IMAGES COMPLETED DATE/TIME: 12/20/2019 1:50 pm REASON FOR STUDY: aspiration pneumonia R13.10 DYSPHAGIA, UNSPECIFIED J69.0 PNEUMONITIS DUE TO INHA LATION OF FOOD AND VOMIT J47.9 BRONCHIECTASIS, UNCOMPLICATED COMPARISON: None. TECHNIQUE: Videofluoroscopic swallowing examination was performed in conjunction with speech patholo gy. Videofluoroscopic imaging was obtained and reviewed and these are the findings: RADIATION DOSE: 2.2 minutes 1 image saved to PACS. LIMITATIONS: None FINDINGS: The patient was brought into the fluoro room and placed upright on a modified barium swall ow chair. The patient was then given multiple consistencies mixed with barium to swallow under live fluoroscopic video guidance. According to the Speech Pathologist there was aspiration was seen with thin barium. All other consistencies were swallowed without incident. Please refer to the speech pat hology report further details. IMPRESSION: ASPIRATION SEEN WITH THIN BARIUM. PLEASE SEE SPEECH PATHOLOGIST REPORT FOR OTHER FINDING S AND RECOMMENDATIONS. COMMENT: None Quality ID [id number]: Final reports for procedures using fluoroscopy that document radiation exposure osmel gris, or exposure time and number of fluorographic images (if radiation exposure indices are not avail able) TECHNICAL DOCUMENTATION: JOB ID: [id number] 2010 [employer]- All Rights Reserved Reading location - IP/workstation name: [email or web address] [id number]
== END 2019-12-20 15:25 | disposition home or self-care (01) | DRG 177 ==
LOC: END 07:31 → 3S 13:17
PROVIDERS: ADMIT Hospitalist; ATTEND Hospitalist
PROC: 0DB68ZX Excision of Stomach, Via Natural or Artificial Opening Endoscopic, Diagnostic (ICD-10-PCS; 2019-12-18)
PROC: 0DB58ZX Excision of Esophagus, Via Natural or Artificial Opening Endoscopic, Diagnostic (ICD-10-PCS; 2019-12-18)
PROC: 5A09457 Assistance with Respiratory Ventilation, 24-96 Consecutive Hours, Continuous Positive Airway Pressure (ICD-10-PCS; principal; 2019-12-18 10:00)
DX: J69.0 Pneumonitis due to inhalation of food and vomit (principal); J96.21 Acute and chronic respiratory failure with hypoxia; I10 Essential (primary) hypertension; K21.9 Gastro-esophageal reflux disease without esophagitis; I73.9 Peripheral vascular disease, unspecified; R00.0 Tachycardia, unspecified; Z66 Do not resuscitate; R13.13 Dysphagia, pharyngeal phase; Z85.028 Personal history of other malignant neoplasm of stomach; Z79.899 Other long term (current) drug therapy; Z88.4 Allergy status to anesthetic agent
CPT/HCPCS: 00731; 36415; 36600; 43239; 71045; 74230; 80048; 80053; 81001; 82803; 82962; 83735; 85025; 85610; 85730; 87040; 87205; 88305; 93005; 93010; 94640; 94660; J0295; J1644; J2405; J2704; J3490; J7050; J7120; J7614; J7644; S0028

== ENCOUNTER 2020-01-24 05:24 | Day surgery (SDC) | payer MEDICARE, OTHER ==
[~2020-01-24 05:24] MED LIST changes: +AMPICILLIN SODIUM 2 GM in NORMAL SALINE 100 ML IV PRN; -DIPHENHYDRAMINE HCL 50 MG/ML VIAL ONE; -EPINEPHRINE INJ 1 MG/10 ML DISP.SYRIN ONE; -FENTANYL CITRATE INJ/PF 100 MCG/2 ML AMPUL ONE; -FLUMAZENIL INJ 0.5 MG/5 ML VIAL ONE; -GLUCAGON,HUMAN RECOMB 1 MG INJ ONE; +LACTATED RINGERS 1000 ML IV PRN; +LIDOCAINE 0.5% INJ-PF (5 MG/ML) 50 ML SDV SUBCUT PRN; -MIDAZOLAM 2 MG/2 ML INJ ONE; -NALOXONE HCL INJ/PF 0.4 MG/1 ML SDV ONE; -ONDANSETRON HCL INJ/PF 4 MG/2 ML SDV ONE
[2020-01-24] MEDS ORDERED: DEXAMETHASONE SOD PHOSPHATE INJ 4 MG/1 ML VIAL ONE ×2 (07:02→07:43)
[2020-01-24] MEDS ORDERED: MIDAZOLAM 2 MG/2 ML INJ ONE (07:02)
[2020-01-24] MEDS ORDERED: PROPOFOL INJ 200 MG/20 ML VIAL IV ONE (07:02)
[2020-01-24] MEDS ORDERED: FENTANYL CITRATE INJ/PF 100 MCG/2 ML AMPUL ONE (07:02)
[2020-01-24] MEDS ORDERED: ONDANSETRON HCL INJ/PF 4 MG/2 ML SDV ONE (07:02)
[2020-01-24] MEDS ORDERED: OXYMETAZOLINE HCL 0.05% NASAL SPRAY 15 ML BOTTLE ONE (07:19)
[2020-01-24] MEDS ORDERED: FENTANYL CITRATE INJ/PF 100 MCG/2 ML AMPUL IV PRN ×2 (07:55)
[2020-01-24] MEDS ORDERED: MEPERIDINE HCL/PF INJ 25 MG/1 ML DISP.SYRIN IV PRN (07:55)
[2020-01-24] MEDS ORDERED: DIPHENHYDRAMINE HCL 50 MG/ML VIAL IV PRN (07:55)
[2020-01-24] MEDS ORDERED: ONDANSETRON HCL INJ/PF 4 MG/2 ML SDV IV PRN (08:36)
[2020-01-24] MEDS ORDERED: HYDROCOD/ACETAMIN 7.5-325 MG/15 ML ORAL SOLN UDCUP PO PRN (08:37)
[2020-01-24] MEDS ORDERED: HYDROCOD/ACETAMIN 7.5-325 MG/15 ML ORAL SOLN UDCUP ONE (09:16)
--- NOTE | 2020-01-24 09:21 | Operative Report ---
Operative Report-[facility] Operative Report: Date: 24 January 2020 History: 84-year-old male with a base of tongue mass noted on physical exam. Presents today for micro direct endoscopy with biopsy of the base of tongue mass Pre-operative diagnosis: Mass, base of tongue Post operative diagnosis: Same as above Procedure: 1. MicroDirect laryngoscopy 2. Biopsy mass, base of tongue Surgeon: Chele Ramos MD, FACS, [facility] Anesthesia: General via endotracheal intubation Procedure: Under receiving informed consent from the patient, he was taken to the operating room placed supine on the operating room table. After successful induction intubation by anesthesia the patient was turned 90 degrees and the neck was slightly extended. A head drape was placed. A Phyllis laryngoscope was inserted atraumatically to the laryngeal inlet. The larynx was visualized and found to be normal. Mass extended from the base of tongue down into the vallecula. The max was slightly exophytic and mildly friable. The limited scope was suspended. Multiple biopsies were taken of the base of tongue mass. The mass appeared to be firm and slightly whitish in color. Hemostasis was obtained using Afrin saturated cottonoids. The Afrin cottonoids were left in place as the patient was taken out of suspension and the laryngoscope was withdr awn. The cottonoids will be removed when the patient is extubated. The laryngoscope was removed from the patient atraumatically. Patient was given back to anesthesia who successfully extubated the patient removing the previously placed Afrin cottonoids. Patient tolerated the procedure well without any complications. Estimated blood loss: 5 mL Fluids: 500 mL The patient was then transported to the Post Anesthesia Care Unit in stable condition with spontaneous respiration. No complication.
[2020-01-24] MEDS ORDERED: SUCCINYLCHOLINE CHLORIDE INJ 200 MG/10 ML VIAL ONE (10:00)
[2020-01-24 10:18] VITALS: BP 161/85
== END 2020-01-24 10:20 | disposition home or self-care (01) ==
LOC: OROUT 05:24
PROVIDERS: ATTEND Otolaryngology
DX: D47.9 Neoplasm of uncertain behavior of lymphoid, hematopoietic and related tissue, unspecified (principal); R13.10 Dysphagia, unspecified; K22.2 Esophageal obstruction; I10 Essential (primary) hypertension; C16.9 Malignant neoplasm of stomach, unspecified; J34.2 Deviated nasal septum; Z87.891 Personal history of nicotine dependence; Z03.818 Encounter for observation for suspected exposure to other biological agents ruled out; Z90.3 Acquired absence of stomach [part of]; K21.0 Gastro-esophageal reflux disease with esophagitis
CPT/HCPCS: 31536; 88342 ×2; 88341 ×2; 88305 ×2; 00320; U0003; J0290 ×2; J2250; J1100; J3010; A9270 ×2; J0330; J2405; J7050 ×2; C9803; 320; 87635; J2704; J3490